=== PATIENT | male | born 1975 | race Caucasian/White ===

== ENCOUNTER 2016-07-30 19:08 | Emergency (ER) | payer BC ==
[2016-07-30 19:09] VITALS: BMI 26.9
[2016-07-30 19:32] VITALS: BP 117/77; PULSE 84; RESP 18; TEMP 98.6; O2SAT 98
--- NOTE | 2016-07-30 19:59 | C.PDOC ---
History Of Present Illness 41 year old male presents to the ED with complaints of feeling like he can't get a deep breath in. pt states has tenderness to the left side of the chest in axillary area and left shoulder area exacerbated by deep breaths and movement of left arm that began two days ago. He also mentions associated cough with clear- white sputum and occasional lightheadedness. 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 He denies any recent travel, fever, leg pain or swelling other complaints at this time. Time Seen by Provider: 07/30/16 19:22 Chief Complaint (Nursing): ENT Problem History Per: Patient History/Exam Limitations: no limitations Onset/Duration Of Symptoms: Days (2 days ) Current Symptoms Are (Timing): Still Present Quality: "Pain" Associated Symptoms: denies: Nausea, Dyspnea, Diaphoresis, Syncope Exacerbating Factors: Movement, Deep Breathing Recent travel outside of the [place]: No Past Medical History Reviewed: Historical Data, Nursing Documentation, Vital Signs Vital Signs: Last Vital Signs Temp 98.6 F 07/30/16 19:21 Pulse 84 07/30/16 19:21 Resp 18 07/30/16 19:21 BP 117/77 07/30/16 19:21 Pulse Ox 98 07/30/16 20:21 - Medical History PMH: No Chronic Diseases Surgical History: No Surg Hx Family History: States: Unknown Family Hx - Social History Hx Tobacco Use: No Hx Alcohol Use: No Hx Substance Use: No - Immunization History Hx Tetanus Toxoid Vaccination: No Hx Influenza Vaccination: No Hx Pneumococcal Vaccination: No Review Of Systems Constitutional: Negative for: Fever, Chills, Sweats ENT: Negative for: Throat Pain Cardiovascular: Positive for: Chest Pain (left axillary area ). Negative for: Palpitations Respiratory: Positive for: Cough. Negative for: Shortness of Breath Gastrointestinal: Negative for: Nausea, Vomiting, Abdominal Pain, Diarrhea Neurological: Positive for: Other (lightheadedness). Negative for: Weakness, Numbness Physical Exam - Physical Exam Appears: Non-toxic, No Acute Distress Skin: Warm, Dry Head: Atraumatic, Normacephalic Ear(s): Bilateral: Normal Nose: Normal Oral Mucosa: Moist Throat: Normal, No Erythema, No Exudate Neck: Normal ROM, Supple Chest: Symmetrical, No Deformity, Tenderness (reproducible tenderness in left axilla and left trapezius, no erythema, ecchymosis, warmth ) Cardiovascular: Rhythm Regular, No Murmur Respiratory: Normal Breath Sounds, No Rales, No Rhonchi, No Stridor, No Wheezing Gastrointestinal/Abdominal: Soft, No Tenderness, No Distention, No Guarding, No Rebound Male Genital: Normal Inspection Extremity: Normal ROM, No Tenderness, No Pedal Edema, No Calf Tenderness Neurological/Psych: Oriented x3, Normal Speech, Normal Cognition ED Course And Treatment ECG: Interpreted By Me ECG Rhythm: Sinus Rhythm ECG Interpretation: Normal Interpretation Of ECG: nsr @64 Rate From EC O2 Sat by Pulse Oximetry: 98 (room air ) Pulse Ox Interpretation: Normal - Radiology CXR: Interpreted by Me CXR Interpretation: Yes: No Acute Disease. No: Infiltrates Disposition Counseled Patient/Family Regarding: Studies Performed, Diagnosis, Need For Followup, Rx Given - Disposition Disposition: HOME/ ROUTINE Disposition Time: 20:30 Condition: STABLE Additional Instructions: Consulte con scherer mdico en los prximos welsh. Volver a la aster de emergencia por cualquier empeoramiento de los sntoma Instructions: Chest Pain (ED) - Clinical Impression Clinical Impression: Pleuritic chest pain, Cough - Scribe Statement The provider has reviewed the documentation as recorded by the Scribe Alicia Soto All medical record entries made by the Scribe were at my direction and personally dictated by me. I have reviewed the chart and agree that the record accurately reflects my personal performance of the history, physical exam, medical decision making, and the department course for this patient. I have also personally directed, reviewed, and agree with the discharge instructions and disposition.
--- NOTE | 2016-07-30 21:47 | RAD ---
HISTORY: cough sob COMPARISON: No prior. TECHNIQUE: Chest PA and lateral FINDINGS: LUNGS: No active pulmonary disease. PLEURA: No significant pleural effusion identified. No pneumothorax apparent. CARDIOVASCULAR: Normal. OSSEOUS STRUCTURES: No significant abnormalities. VISUALIZED UPPER ABDOMEN: Normal. OTHER FINDINGS: None. IMPRESSION: No active disease.
--- NOTE | 2016-08-01 07:54 | CARD ---
APPROVED REPORT EKG Measurement Heart [id number] <Conclusion> Normal sinus rhythm Normal ECG
== END 2016-07-30 20:38 | disposition home or self-care (01) ==
LOC: C.ER 19:08
DX: R05 Cough (principal); R07.81 Pleurodynia

== ENCOUNTER 2017-08-01 18:12 | Emergency (ER) | payer BC, OTHER ==
[2017-08-01 18:13] VITALS: BMI 26.9
[2017-08-01 18:17] VITALS: O2SAT 99
[2017-08-01 18:52] VITALS: BP 102/50
[2017-08-01 19:30] LABS: BASO % 0.7 % (0.0-2.0); EOS # 0.1 K/uL (0.0-0.7); HEMOGLOBIN 14.1 g/dL (12.0-18.0); LYMPH # 1.9 K/uL (1.0-4.3); MEAN CELL VOLUME 85.4 fL (80.0-94.0); MEAN CORPUSCULAR HEMOGLOBIN 29.4 pg (27.0-31.0); MEAN CORPUSCULAR HGB CONC 34.4 g/dL (33.0-37.0); MEAN PLATELET VOLUME 9.3 fL (7.2-11.7); MONO # 0.5 K/uL (0.0-0.8); MONO % 8.6 % (0.0-10.0); NEUT # 3.3 K/uL (1.8-7.0); NEUT % 56.7 % (50.0-75.0); NRBC % 0.1 % (0.0-2.0); RBC 4.79 Mil/uL (4.40-5.90); RED CELL DISTRIBUTION WIDTH 12.2 % (11.5-14.5); WHITE BLOOD COUNT 5.8 K/uL (4.8-10.8)
[2017-08-01 19:44] LABS: ALB/GLOB RATIO 1.5 (1.0-2.1); ALBUMIN 4.3 g/dL (3.5-5.0); ALT/SGPT 29 U/L (21-72); AST/SGOT 27 U/L (17-59); BLOOD UREA NITROGEN 16 mg/dL (9-20); CALCIUM 9.3 mg/dl (8.6-10.4); GFR AFRICAN-AMERICAN > 60; GFR NON-AFRICAN AMERICAN > 60
--- NOTE | 2017-08-01 20:03 | C.PDOC ---
History Of Present Illness 42yo male, no prior cardiac history, presents to ED for evaluation of palpitations and a numb/aching pain to his left pectoralis muscle with associated dizziness. 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 He states the symptoms are intermittent and he has taken Motrin with some relief. He reports similar episodes in the past but since the presentation is persistent, he was concerned and came to the ER for evaluation. He denies any tobacco, drug or alcohol use. No other medical complaints. Time Seen by Provider: 08/01/17 19:06 Chief Complaint (Nursing): Palpitations History Per: Patient History/Exam Limitations: no limitations Onset/Duration Of Symptoms: Days, Intermittent Episodes, Persistent Current Symptoms Are (Timing): Still Present Quality: "Pain" Additional History Per: Patient Past Medical History Reviewed: Historical Data, Nursing Documentation, Vital Signs Vital Signs: Last Vital Signs Temp 98.5 F 08/01/17 18:15 Pulse 60 08/01/17 18:49 Resp 14 08/01/17 18:49 BP 102/50 L 08/01/17 18:49 Pulse Ox 99 08/01/17 20:10 - Medical History PMH: No Chronic Diseases Denies: HTN Surgical History: No Surg Hx Family History: States: No Known Family Hx, Unknown Family Hx Denies: Stroke, NH, CAD, Diabetes, Hypertension - Social History Hx Tobacco Use: No Hx Alcohol Use: No Hx Substance Use: No - Immunization History Hx Tetanus Toxoid Vaccination: No Hx Influenza Vaccination: No Hx Pneumococcal Vaccination: No Review Of Systems Constitutional: Negative for: Fever, Chills Cardiovascular: Positive for: Chest Pain, Palpitations, Light Headedness Respiratory: Negative for: Shortness of Breath Gastrointestinal: Positive for: Nausea. Negative for: Abdominal Pain Physical Exam - Physical Exam Appears: Non-toxic, No Acute Distress Skin: Normal Color, Warm, Dry Head: Atraumatic, Normacephalic Eye(s): bilateral: Normal Inspection, PERRL, EOMI Oral Mucosa: Moist Neck: Normal ROM, Supple Chest: Symmetrical, Tenderness (mild tenderness to left pectoralis muscle) Cardiovascular: Rhythm Regular Respiratory: Normal Breath Sounds Gastrointestinal/Abdominal: Normal Exam, Soft, No Tenderness Back: Normal Inspection Extremity: Normal ROM, No Pedal Edema, No Deformity Neurological/Psych: Oriented x3 ED Course And Treatment - Laboratory Results Result Diagrams: 08/01/17 19:26 08/01/17 19:26 Lab Interpretation: Normal ECG: Interpreted By Me, Viewed By Me O2 Sat by Pulse Oximetry: 99 (RA) Pulse Ox Interpretation: Normal - Radiology CXR: Interpreted by Me CXR Interpretation: Yes: No Acute Disease Reevaluation Time: 20:12 Reassessment Condition: Improved (Patient remains comfortable in ED.) Medical Decision Making Medical Decision Making: Impression: Chest pain, likely musculoskeletal Plan: -- EKG -- CXR -- Labs Progress: 1925 Labs including cardiac enzymes reviewed and are within normal limits. CXR reviewed and shows no acute disease. Labs and CXR result discussed with patient; stable for discharge home. Patient instructed to follow up with PMD in 2-3 days. Disposition Counseled Patient/Family Regarding: Studies Performed, Diagnosis, Need For Followup - Disposition Referrals: [facility] [Outside] Disposition: HOME/ ROUTINE Disposition Time: 20:12 Condition: STABLE Instructions: Chest Pain That Is Not Caused by the Heart (DC) Forms: [employer] ([place]) Print Language: VIETNAMESE - Clinical Impression Clinical Impression: Non-cardiac chest pain - Scribe Statement The provider has reviewed the documentation as recorded by the Scribe (Edita Pedro) Provider Attestation: All medical record entries made by the Scribe were at my direction and personally dictated by me. I have reviewed the chart and agree that the record accurately reflects my personal performance of the history, physical exam, medical decision making, and the department course for this patient. I have also personally directed, reviewed, and agree with the discharge instructions and disposition.
[2017-08-01 21:00] VITALS: PULSE 74; RESP 20; TEMP 98
--- NOTE | 2017-08-02 10:51 | RAD ---
PROCEDURE: CHEST RADIOGRAPH, 1 VIEW HISTORY: Chest pain COMPARISON: Comparison chest dated 07/30 2016 FINDINGS: LUNGS: No acute infiltrates or effusions. Re- demonstrated is a azygos fissure PLEURA: No pneumothorax or pleural fluid seen. CARDIOVASCULAR: Normal. OSSEOUS STRUCTURES: No significant abnormalities. VISUALIZED UPPER ABDOMEN: Normal. OTHER FINDINGS: None. IMPRESSION: No active disease.
--- NOTE | 2017-08-02 15:45 | CARD ---
APPROVED REPORT EKG Measurement Heart [id number] <Conclusion> Normal sinus rhythm Normal ECG
== END 2017-08-01 20:58 | disposition home or self-care (01) ==
LOC: C.ER 18:12
DX: R07.89 Other chest pain (principal)